=== PATIENT | female | born 1985 | race Caucasian/White ===

== ENCOUNTER 2024-08-02 05:35 | Emergency (ER) | payer BC, MEDICAID ==
[~2024-08-02] VITALS: Ht 157.5 cm; Wt 80.8 kg
[2024-08-02 07:11] VITALS: BP 123/90; PULSE 96; RESP 16; TEMP 97.9; O2SAT 98
== END 2024-08-02 07:12 | disposition home or self-care (01) ==
LOC: ER 05:36
DX: O03.9 Complete or unspecified spontaneous abortion without complication (principal); O99.511 Diseases of the respiratory system complicating pregnancy, first trimester; J45.909 Unspecified asthma, uncomplicated; Z3A.01 Less than 8 weeks gestation of pregnancy; Z88.5 Allergy status to narcotic agent
CPT/HCPCS: 36415; 84702; 86900; 86901; 99283